=== PATIENT | female | born 1970 | race Caucasian/White ===

== ENCOUNTER 2025-02-22 11:23 | Outpatient (REF) | payer BC, SELFPAY ==
--- OUTSIDE RECORDS SUMMARY | 2025-02-22 13:07 | XMS_ITS | Clinical Summary ---
Author Organization [facility] Address [address] [place] [address] Phone Care Team Providers Care Wool Cleaner Name Role Phone Kofi Hutson NP Primary Care Provider [phone] Allergies Active Allergy Reactions Criticality Noted Date Comments Oxycodone Itching 11/28/2024 Medications polyethylene glycol (Golytely) 236-22.74-6.74 -5.86 gram solution Take 4L by mouth once for one dose. May substitue any PEG. Starting at 6PM the night before your procedure drink 1 8oz glasses at your own pace until you complete half of the gallon. Finish 2nd half of the gallon 5 hours before your procedure. 4000 mL 5 Active bisacodyL (DULCOLAX) 5 mg EC tablet Take 2 tablets by mouth right before beginning bowel prep. See instructions provided by the office 2 tablet 5 Active vibegron (Gemtesa) 75 mg tablet tablet Take 1 tablet (75 mg total) by mouth 1 (one) time each day. Active Encounters Date Type Department Care Team Description 12/05/2024 1:35 PM EDT Anesthesia Event [facility] Endoscopy [address] [place] [address] Kaz Bro DO Chang, Ling, CRNA 12/05/2024 12:58 PM EDT - 12/05/2024 11:59 PM EDT Hospital Encounter [facility] Endoscopy [address] [place] [address] Dawson Flynn MD Chang, Ling, CRNA Korobkov, Vitaliy, DO Colon cancer screening Discharge Disposition: Home or Self Care 11/23/2024 Telephone Gastroenterology - [address] [place] [address] Devon Henriquez [place] insurance card from Last 3 Months Surgical History Surgery Date Site/Laterality Comments FOOT SURGERY 1998 PROCEDURE: HISTORICAL FOOT SURGERY Medical History Medical History Date Comments Other specified personal his tory presenting hazards to health(V15.89) DX:Other specifie d personal history presenting hazards to health(V15.89); 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 Overactive bladder Family History Medical History Relation Name Comments Glaucoma Father Cataracts Maternal Grandfather Diabetes Maternal Grandfather Cataracts Maternal Grandmother Stroke Maternal Grandmother Thyroid disease Maternal Grandmother Depression Mother Hypertension Mother Thyroid disease Mother Cataracts Paternal Grandfather Cataracts Paternal Grandmother Ovarian cancer Paternal Grandmother Thyroid disease Sister 1 Hypertension Sister 2 Blindness Neg Hx Macular degeneration Neg Hx Strabismus Neg Hx Relation Name Status Comments Daughter Alive Father Alive Maternal Grandfather Maternal Grandmother Mother Paternal Grandfather Paternal Grandmother Sister 1 Sister 2 Sister 3 Alive Social History Tobacco Use Types Packs/Day Years Used Date Smoking Tobacco: Every Day Cigarettes Smokeless Tobacco: Never Alcohol Use Standard Drinks/Week Comments Yes 0 (1 standard drink = 0.6 oz pur e alcohol) OCC Interpersonal Safety Answer Date Record ed Physical Abuse 12/05/2024 Verbal Abuse 12/05/2024 Comments No Sex and Gender Information Value Date Recorded Sex Assigned at Female 12/02/2024 1:43 PM EDT Legal Sex Female 1:20 AM EST Gender Identity Female 12/02/2024 1:43 PM EDT Sexual Orientation Straight 12/05/2024 12 :53 PM EDT Obstetrics History Last Filed Vital Signs Vital Sign Reading Time Taken Comments Blood Pressure 140/76 12/05/2024 2:15 PM EDT Pulse 75 12/05/2024 2:15 PM EDT Temperature 36.1 ??C (97 ??F) 12/05/2024 1:26 PM EDT Respiratory Rate 16 12/05/2024 2:15 PM EDT Oxygen Saturation 100% 12/05/2024 2:15 PM EDT Inhaled Oxygen Concentration - - Weight 59 kg (130 lb) 12/05/2024 1:26 PM EDT Height 165.1 cm (5' 5 ) 12/05/2024 1:26 PM EDT Body Mass Index 21.63 12/05/2024 1:26 PM EDT Plan of Treatment Health Maintenance Due Date Last Done Comments Breast Cancer Screening 1970 DTaP,Tdap,and Td Vaccines (1 - Tdap) 1991 Hepatitis B Vaccines (1 of 3 - 19+ 3-dose series) 1991 Pneumococcal Vaccine: 50+ Years (1 of 2 - PCV) 1991 Pneumococcal Vaccine: Pediatrics (0 to 5 Years) and At-Risk Patients (6 to 64 Years) (1 of 2 - PCV) 1991 Cervical Cancer Screening: Pap Smear 1993 Zoster Vaccines (1 of 2) 2022 COVID-19 Vaccine ( season) 2024 08/16/2023, 06/24/2021, 09/29/2020 Cholesterol Screening (Lipid Panel) 10/26/2024 Depression Screening 10/26/2024 HIV Screening 10/26/2024 Hepatitis C Screening 10/26/2024 Social Influencers of Health Screening 10/26/2024 Influenza Vaccine (Season Ended) 2025 08/16/2023, 06/24/2021, 06/22/2019, Additional history exists Colorectal Cancer Screening: Colonoscopy 12/05/2034 12/05/2024 HIB Vaccines Aged Out No longer eligi ble based on patient's age to complete this topic HPV Vaccines Aged Out No longer eligi ble based on patient's age to complete this topic Hepatitis A Vaccines Aged Out No long er eligible based on patient's age to complete this topic IPV Vaccines Aged Out No longer eligi ble based on patient's age to complete this topic MMR Vaccines Aged Out No longer eligi ble based on patient's age to complete this topic Meningococcal ACWY Vaccine Aged Out N o longer eligible based on patient's age to complete this topic Meningococcal B Vaccine Aged Out No l onger eligible based on patient's age to complete this topic RSV Immunization Patients Under 20 months Aged Out No longer eligible based on patient's age to complete this topic Varicella Vaccines Aged Out No longer eligible based on patient's age to complete this topic Procedures Procedure Name Priority Date/Time Associated Diagnosis Comments COLONOSCOPY Routine 12/05/2024 1:54 PM EDT Colon cancer screening from Last 3 Months Results * COLONOSCOPY Anesthesia - MAC; [facility] ENDOSCOPY (12/05/2024 1:54 PM EDT) Anatomical Region Laterality Modality Other 12/05/2024 1:20 PM EDT Impressions 12/05/2024 1:55 PM EDT - Diverticulosis in the entire examined colon. ? - The examination was otherwise normal on direct and ? retroflexion views. ? - No specimens collected. Recommendation: ?- Discharge patient to home. ? - High fiber diet. ? - Continue present medications. ? - Repeat colonoscopy in 10 years for surveillance. ? - Return to GI office PRN. Narrative 12/05/2024 1:[address] [facility] GI Patient Name: Emily Wills Procedure Date: 12/05/2024 1:20 PM Date of : 1970 Age: 54 Room: ROOM 14 Gender: Female Note Status: Finalized Attending MD: Dawson Flynn MD, Procedure Date No Time: 12/05/2024 Procedure: ? Colonoscopy Indications: ? Screening for colorectal malignant neoplasm Providers: ? Dawson Flynn MD Referring MD: ?Dawson Flynn MD Medicines: ? Monitored Anesthesia Care Complications: ? No immediate complications. Estimated Blood Loss: ? Estimated blood loss: none. Procedure: ? Pre-Anesthesia Assessment: ? - ASA Grade Assessment: II - A patient with mild ? systemic disease. ? - After reviewing the risks and benefits, the patient ? was deemed in satisfactory condition to undergo the ? procedure. ? After I obtained informed consent, the scope was ? passed under direct vision. Throughout the procedure, ? the patient's blood pressure, pulse, and oxygen ? saturations were monitored continuously.The Olympus ? Pediatric Colonosocpe was introduced through the anus ? and advanced to the cecum, identified by appendiceal ? orifice and ileocecal valve. The colonoscopy was ? technically difficult and complex due to restricted ? mobility of the colon, a redundant colon and ? significant looping. The patient tolerated the ? procedure well. The quality of the bowel preparation ? was good. Findings: ?A few small-mouthed diverticula were found in the ? entire colon. ? The exam was otherwise without abnormality on direct ? and retroflexion views. Procedure Code(s): ? --- Professional --- ? G0121, Colorectal cancer screening; colonoscopy on ? individual not meeting criteria for high risk Diagnosis Code(s): ? --- Professional --- ? Z12.11, Encounter for screening for malignant neoplasm ? of colon CPT copyright 2020 [employer]. All rights reserved. The codes documented in this report are preliminary and upon loss prevention associate review may be revised to meet current compliance requirements. Dawson Flynn MD 12/05/2024 1:55:15 PM This report has been signed electronically.Dawson Flynn MD Number of Addenda: 0 Note Initiated On: 12/05/2024 1:20 PM Scope In: Scope Out: ? Endoscopy Department at [facility] - [address] [place] [address], ? [place] [address] Procedure Note Dawson Flynn MD - 12/05/[address] [facility] GI Patient Name: Emily Wills Procedure Date: 12/05/2024 1:20 PM Date of : 1970 Age: 54 Room: ROOM 14 Gender: Female Note Status: Finalized Attending MD: Dawson Flynn MD, Procedure Date No Time: 12/05/2024 Procedure: Colonoscopy Indications: Screening for colorectal malignant neoplasm Providers: Dawson Flynn MD Referring MD: Dawson Flynn MD Medicines: Monitored Anesthesia Care Complications: No immediate complications. Estimated Blood Loss: Estimated blood loss: none. Procedure: Pre-Anesthesia Assessment: - ASA Grade Assessment: II - A patient with mild systemic disease. - After reviewing the risks and benefits, thepatient was deemed in satisfactory condition to undergo the procedure. After I obtained informed consent, the scope was passed under direct vision. Throughout theprocedure, the patient's blood pressure, pulse, and oxygen saturations were monitored continuously.The Olympus Pediatric Colonosocpe was introduced through theanus and advanced to the cecum, identified byappendiceal orifice and ileocecal valve. The colonoscopy was technically difficult and complex due to restricted mobility of the colon, a redundant colon and significant looping. The patient tolerated the procedure well. The quality of the bowelpreparation was good. Findings: A few small-mouthed diverticula were found in the entire colon. The exam was otherwise without abnormality ondirect and retroflexion views. Procedure Code(s): --- Professional --- G0121, Colorectal cancer screening; colonoscopy on individual not meeting criteria for high risk Diagnosis Code(s): --- Professional --- Z12.11, Encounter for screening for malignantneoplasm of colon CPT copyright 2020 [employer]. All rights reserved. The codes documented in this report are preliminary and upon loss prevention associate reviewmay be revised to meet current compliance requirements. Dawson Flynn MD 12/05/2024 1:55:15 PM This report has been signed electronically.Dawson Flynn MD Number of Addenda: 0 Note Initiated On: 12/05/2024 1:20 PM Scope In: Scope Out: Endoscopy Department at [facility] - [address] [place] [id number] IMPRESSION: - Diverticulosis in the entire examined colon. - The examination was otherwise normal on directand retroflexion views. - No specimens collected. Recommendation: - Discharge patient to home. - High fiber diet. - Continue present medications. - Repeat colonoscopy in 10 years forsurveillance. - Return to GI office PRN. us Dawson Flynn MD GI~PROCEDURE ORDERABLES Final Result from Last 3 Months Insurance [facility] ([facility]) Care Teams Wool Cleaner Relationship Specialty Start Date End Date Kofi Hutson NP [facility] [address], [place] [address] PCP - General Nurse Practitioner 10/25/24
== END 2025-02-22 11:24 | disposition home or self-care (01) ==
LOC: HO.MAMMO 11:23
PROVIDERS: PCP Nurse Practitioner; Visit Provider Nurse Practitioner
DX: Z12.31 Encounter for screening mammogram for malignant neoplasm of breast (principal)
CPT/HCPCS: 77063; 77067

== ENCOUNTER → 2025-02-22 11:30 | Outpatient (BNV) | payer BC, SELFPAY | PROVIDERS: PCP Nurse Practitioner; Visit Provider Internal Medicine | DX: Z12.31 Encounter for screening mammogram for malignant neoplasm of breast (principal) | CPT/HCPCS: 77063; 77067 ==